=== PATIENT | male | born 1990 | race Caucasian/White ===

== ENCOUNTER 2017-10-07 12:51 | Inpatient (IN) | payer MEDICAID ==
[~2017-10-07] VITALS: Ht 167.6 cm; Wt 64.6 kg
[~2017-10-07 12:51] MED LIST: CEPH500 PO; RISP1 PO
[2017-10-07] MEDS ORDERED: HALOPERIDOL LACTATE 5 MG/ML VIAL IM ONE (13:00)
[2017-10-07] MEDS ORDERED: DiphenhydrAMINE HCL 50 MG/ML VIAL IM ONE (13:00)
[2017-10-07] MEDS ORDERED: LORazepam 2 MG/ML VIAL IM ONE (13:00)
[2017-10-07] MEDS ORDERED: PERTUSS(ACELL),DIPH,TET VAC/PF 0.5 ML VIAL IM ONE (13:30)
[2017-10-07 13:36] LABS: BASOPHILS % (AUTO) 0.7 % (0.0-2.0); EOSINOPHILS % (AUTO) 3.3 % (1.0-6.0); HEMATOCRIT 36.9 % (41-53); HEMOGLOBIN 12.5 g/dL (13.5-17.5); LYMPHOCYTES # (AUTO) 1.6 K/uL (1.0-4.8); LYMPHOCYTES % (AUTO) 17.5 % (22.0-44.0); MEAN CORPUSCULAR HEMOGLOBIN 29.4 pg (26.0-34.0); MEAN CORPUSCULAR HGB CONC 33.8 G/dL (31.0-37.0); MEAN CORPUSCULAR VOLUME 87 fL (80-100); MONOCYTES # (AUTO) 0.9 K/uL (0.1-1.0); MONOCYTES % (AUTO) 10.2 % (2.0-9.0); NEUTROPHILS # (AUTO) 6.1 K/uL (1.8-7.7); NEUTROPHILS % (AUTO) 68.3 % (40.0-70.0); PLATELET COUNT (AUTO) 294 K/uL (150-450); RED BLOOD CELL COUNT(AUTO) 4.25 MIL/uL (4.50-5.90); RED CELL DISTRIBUTION WIDTH 13.6 % (11.5-14.5)
[2017-10-07 14:11] LABS: ANION GAP 7 mmol/L (8-16); CALCIUM, TOTAL 8.2 mg/dL (8.8-10.5); CARBON DIOXIDE 27 mmol/L (22-29); CHLORIDE 104 mmol/L (98-107); CREATININE 0.83 mg/dL (0.60-1.30); GLOMERULAR FILTR. RATE CALC > 60 mL/min (>60); GLUCOSE,RANDOM 89 mg/dL (70-110); POTASSIUM 3.1 mmol/L (3.5-5.1); SODIUM SERUM 138 mmol/L (136-145); UREA NITROGEN, BLOOD 12 mg/dL (7-18)
[2017-10-07 14:15] LABS: AMPHET/METH SCREEN,URINE POSITIVE (NEGATIVE); BARBITURATE SCREEN, URINE NEGATIVE (NEGATIVE); BENZODIAZEPINES SCREEN,URINE NEGATIVE (NEGATIVE); CANNABINOID SCREEN,URINE POSITIVE (NEGATIVE); COCAINE SCREEN,URINE NEGATIVE (NEGATIVE); METHADONE SCREEN, URINE NEGATIVE (NEGATIVE); OPIATE SCREEN,URINE NEGATIVE (NEGATIVE)
[2017-10-07 14:16] LABS: ALANINE AMINOTRANSFERASE 26 U/L (12-78); ALKALINE PHOSPHATASE 53 U/L (46-116); ASPARTATE AMINOTRANSFERASE 15 U/L (15-37); BILIRUBIN,TOTAL 0.3 mg/dL (0.1-1.0); TOTAL PROTEIN, SERUM 6.2 g/dL (6.4-8.2)
[2017-10-07 14:17] LABS: PHENCYCLIDINE SCREEN,URINE NEGATIVE (NEGATIVE)
[2017-10-07] MEDS ORDERED: OLANZapine 5 MG RAPDIS TABLET PO PRN (14:45)
[2017-10-07] MEDS ORDERED: LORazepam 2 MG TABLET PO PRN (14:45)
[2017-10-07] MEDS ORDERED: ZOLPIDEM TARTRATE 10 MG TABLET PO PRN (14:45)
[2017-10-07 16:46] LABS: CHOL/HDL RATIO 2.6 (4.2-7.3); CHOLESTEROL 84 mg/dL (131-200); HDL CHOLESTEROL 32 mg/dL (40-60); LDL CHOL (CALC.) 40 mg/dL (0-130); TRIGLYCERIDES 61 mg/dL (15-150)
[2017-10-07] MEDS ORDERED: TUBERCULIN, PURIFIED PROTEIN DERIVATIVE 5 TU/0.1 ML SYG ID ONE (17:00)
[2017-10-07] MEDS ORDERED: HydrOXYzine PAMOATE 50 MG CAPSULE PO PRN (17:00)
[2017-10-07] MEDS ORDERED: GuaiFENesin/D-METHORPHAN [SUGAR-FREE] 200-20MG/10 ML SYRUP UDCUP PO PRN (17:00)
[2017-10-07] MEDS ORDERED: MAG HYDROX/AL HYDROX/SIMETH ES 30 ML SUSPENSION UDCUP PO PRN (17:00)
[2017-10-07] MEDS ORDERED: LOPERAMIDE HCL 2 MG CAPSULE PO PRN (17:00)
[2017-10-07] MEDS ORDERED: PROMETHAZINE HCL 25 MG TABLET PO PRN (17:00)
[2017-10-07] MEDS ORDERED: ACETAMINOPHEN 325 MG TABLET PO PRN (17:00)
[2017-10-07] MEDS ORDERED: MAGNESIUM HYDROXIDE SUSPENSION 30 ML UDCUP PO PRN (17:00)
[2017-10-07 17:22] VITALS: BP 126/79
[2017-10-07] MEDS: THIAMINE HCL 100 MG TABLET PO SCH (17:43)
[2017-10-07] MEDS: DIVALPROEX SODIUM 500 MG ER TABLET PO SCH (20:47)
[2017-10-07] MEDS: OLANZapine 5 MG RAPDIS TABLET PO SCH (20:47)
[2017-10-08] MEDS ORDERED: INFLUENZA VIRUS VACCINE QVS 2017-18 (3YR+)/PF 60 MCG/0.5 ML SYRINGE IM ONE (04:30)
[2017-10-08 08:19] VITALS: BP 132/84
[2017-10-08] MEDS: THIAMINE HCL 100 MG TABLET PO SCH ×2 (09:31→18:14)
[2017-10-08] MEDS: MULTIVITAMINS WITH MINERALS, THERAPEUTIC TABLET PO SCH (09:31)
[2017-10-08] MEDS: NALTREXONE HCL 50 MG TABLET PO SCH (09:31)
[2017-10-08] MEDS: FOLIC ACID 1 MG TABLET PO SCH (09:31)
[2017-10-08] MEDS ORDERED: POTASSIUM CHLORIDE 20 MEQ ER TABLET PO ONE (11:00)
[2017-10-08 16:00] VITALS: BP 127/72
[2017-10-08] MEDS ORDERED: IBUPROFEN 400 MG TABLET PO PRN (18:45)
[2017-10-08] MEDS ORDERED: ACETAMINOPHEN 325 MG TABLET PO PRN (18:45)
[2017-10-08] MEDS: DIVALPROEX SODIUM 500 MG ER TABLET PO SCH (20:37)
[2017-10-08] MEDS: OLANZapine 5 MG RAPDIS TABLET PO SCH (20:38)
[2017-10-09] MEDS: FERROUS SULFATE 325 MG EC TABLET PO SCH ×3 (06:50→17:14)
[2017-10-09] MEDS ORDERED: OLAN5TAB30 PO (08:08)
[2017-10-09] MEDS ORDERED: DIVA500T52 PO (08:08)
[2017-10-09] MEDS ORDERED: NALT50TA PO (08:08)
[2017-10-09] MEDS: FOLIC ACID 1 MG TABLET PO SCH (09:00)
[2017-10-09] MEDS: MULTIVITAMINS WITH MINERALS, THERAPEUTIC TABLET PO SCH (09:00)
[2017-10-09] MEDS: NALTREXONE HCL 50 MG TABLET PO SCH (09:00)
[2017-10-09] MEDS: THIAMINE HCL 100 MG TABLET PO SCH ×2 (09:00→17:15)
[2017-10-09] MEDS ORDERED: LORazepam 2 MG/ML VIAL ONE (16:58)
[2017-10-09] MEDS ORDERED: DiphenhydrAMINE HCL 50 MG/ML VIAL ONE (16:58)
[2017-10-09] MEDS ORDERED: HALOPERIDOL LACTATE 5 MG/ML VIAL ONE (16:58)
[2017-10-09] MEDS ORDERED: LORazepam 2 MG/ML VIAL IM ONE (17:00)
[2017-10-09] MEDS ORDERED: DiphenhydrAMINE HCL 50 MG/ML VIAL IM ONE (17:00)
[2017-10-09] MEDS ORDERED: HALOPERIDOL LACTATE 5 MG/ML VIAL IM ONE (17:00)
[2017-10-09] MEDS: DIVALPROEX SODIUM 500 MG ER TABLET PO SCH (21:00)
[2017-10-09] MEDS ORDERED: OLANZapine 10 MG RAPDIS TABLET PO SCH (21:00)
[2017-10-10] MEDS: FERROUS SULFATE 325 MG EC TABLET PO SCH ×2 (06:50→12:00)
[2017-10-10] MEDS: THIAMINE HCL 100 MG TABLET PO SCH (09:00)
[2017-10-10] MEDS: FOLIC ACID 1 MG TABLET PO SCH (09:00)
[2017-10-10] MEDS: MULTIVITAMINS WITH MINERALS, THERAPEUTIC TABLET PO SCH (09:00)
[2017-10-10] MEDS: NALTREXONE HCL 50 MG TABLET PO SCH (09:00)
[2017-11-08] MEDS ORDERED: BENZ1TAB10 PO (11:25)
[2017-11-08] MEDS ORDERED: FERR-89 PO (11:26)
== END 2017-10-10 15:14 | disposition home or self-care (01) | DRG 750 ==
LOC: EMS 12:54 → 3EC 16:09
PROVIDERS: ADMIT Psychiatry & Neurology Psychiatry; ATTEND Psychiatry & Neurology Psychiatry
DX: F25.1 Schizoaffective disorder, depressive type (principal); E87.6 Hypokalemia; Z91.19 Patient's noncompliance with other medical treatment and regimen; D64.9 Anemia, unspecified; F10.10 Alcohol abuse, uncomplicated; S01.01XA Laceration without foreign body of scalp, initial encounter; F17.210 Nicotine dependence, cigarettes, uncomplicated; S01.81XA Laceration without foreign body of other part of head, initial encounter; Z59.0 Homelessness; Z65.3 Problems related to other legal circumstances; Z79.899 Other long term (current) drug therapy; W45.8XXA Other foreign body or object entering through skin, initial encounter; Y93.89 Activity, other specified; Y92.89 Other specified places as the place of occurrence of the external cause; Y99.8 Other external cause status; Z28.21 Immunization not carried out because of patient refusal
CPT/HCPCS: 12002; 90471; 90715; 96372; 99291; G0480; J1200; J1630; J2060